=== PATIENT | male | born 1995 | race Two or more races ===

== ENCOUNTER 2022-08-16 14:19 | Emergency (ER) | payer OTHER ==
[~2022-08-16] VITALS: Ht 177.8 cm; Wt 75.0 kg
[2022-08-16] MEDS ORDERED: ASPIRIN 81MG TABLET PO ONE (14:45)
[2022-08-16 15:15] VITALS: BP 116/74
[2022-08-16 15:56] LABS: BASOPHILS % 0.6 % (0.0-2.0); EOSINOPHILS % 1.4 % (0.0-5.0); HEMOGLOBIN. 15.7 g/dL (14.0-18.0); LYMPHOCYTES % 25.7 % (20.0-50.0); MEAN CORPUSCULAR HEMOGLOBIN 30.2 pg (28.0-32.0); MEAN CORPUSCULAR VOLUME 88.5 fL (80.0-94.0); MEAN PLATELET VOLUME 7.6 fl (7.4-10.4); MONOCYTES % 6.8 % (2.0-8.0); NEUTROPHILS % 65.5 % (40.0-76.0); PLATELET 278 x1000/uL (130-400)
[2022-08-16 16:04] LABS: CHLORIDE 106 mEq/L (98-107)
[2022-08-16 16:08] LABS: PARTIAL THROMBOPLASTIN TIME 29.1 sec (23.4-31.0); PROTHROMBIN TIME 11.2 sec (9.6-11.0)
== END 2022-08-16 17:09 | disposition home or self-care (01) ==
LOC: ER 14:19
DX: R07.89 Other chest pain (principal); I48.91 Unspecified atrial fibrillation
CPT/HCPCS: 36415; 71045; 80053; 84484; 85025; 85610; 85730; 93005; 99285; Z7610